=== PATIENT | male | born 1975 | race Caucasian/White ===

== ENCOUNTER 2017-12-08 15:45 | Emergency (ER) | payer OTHER ==
[~2017-12-08] VITALS: Ht 167.6 cm; Wt 86.3 kg
[2017-12-08] MEDS ORDERED: NORCO 5/3251 TABLET PO (17:35)
[2017-12-08] MEDS ORDERED: PREDNISONE50 MG PO (17:35)
[2017-12-08 17:52] VITALS: BP 130/72
[2017-12-09] MEDS ORDERED: ZYRTEC10 M3 PO (10:09)
[2017-12-09] MEDS ORDERED: PRILOSEC20 MG PO (10:09)
[2017-12-09] MEDS ORDERED: NEURONTIN600 MG PO (10:09)
[2017-12-09] MEDS ORDERED: ROBAXIN750 MG PO (10:09)
[2017-12-09] MEDS ORDERED: MOBIC7.5 MG PO (10:10)
== END 2017-12-08 17:54 | disposition home or self-care (01) ==
LOC: EME 15:45
DX: M54.5 Low back pain (principal); G89.29 Other chronic pain; F17.200 Nicotine dependence, unspecified, uncomplicated
CPT/HCPCS: 99281; 99283

== ENCOUNTER → 2017-12-12 | Outpatient (CLI) | payer OTHER ==
[~2017-12-12] VITALS: Ht 167.6 cm; Wt 88.5 kg
[~2017-12-12] MED LIST: MOBIC7.5 MG PO; NEURONTIN600 MG PO; NORCO 5/3251 TABLET PO; PREDNISONE50 MG PO; PRILOSEC20 MG PO; ROBAXIN750 MG PO; ZYRTEC10 M3 PO
== END | disposition home or self-care (01) ==
LOC: AMB 11:15
DX: K29.70 Gastritis, unspecified, without bleeding (principal); Z87.11 Personal history of peptic ulcer disease; R09.82 Postnasal drip; R12 Heartburn; Z80.41 Family history of malignant neoplasm of ovary; Z80.8 Family history of malignant neoplasm of other organs or systems; Z88.3 Allergy status to other anti-infective agents
CPT/HCPCS: 88305; 88342 TC